=== PATIENT | male | born 1980 | race Caucasian/White ===

== ENCOUNTER → 2018-02-15 15:15 | Outpatient (REF) | payer BC, SELFPAY ==
[2018-02-15 18:48] LABS: Basophils # 0.1 K/mm3 (0-0.2); Basophils % 0.7 % (0.1-2.0); Eosinophils # 0.2 K/mm3 (0.0-0.4); Eosinophils % 2.8 % (0.1-12.0); Hematocrit 42.6 % (42.0-52.0); Lymphocytes # 1.8 K/mm3 (0.7-4.5); Mean Corpuscular HGB Conc 35.2 g/dL (31.8-35.4); Mean Corpuscular Hemoglobin 32.2 pg (27.0-31.2); Mean Corpuscular Volume 91.5 fl (80-94); Mean Platelet Volume 8.4 fl (7.4-10.4); Monocytes # 0.4 K/mm3 (0.1-1.0); Monocytes % 5.7 % (1.7-9.3); Neutrophils # 4.4 K/mm3 (1.8-7.8); Neutrophils % 64.8 % (37.0-80.0); Platelet Count 239 K/mm3 (142-424); Red Blood Count 4.66 M/mm3 (4.60-6.20); Red Cell Distribution Width 12.4 % (11.5-17.5); White Blood Count 6.9 K/mm3 (4.8-10.8)
[2018-02-15 19:15] LABS: Alanine Aminotransferase 30 U/L (12-78); Albumin Level 3.9 gm/dL (3.4-5.0); Albumin/Globulin Ratio 1.1 (1.1-1.8); Alkaline Phosphatase 111 U/L (46-116); Anion Gap 12.1 mEq/L (5-15); Aspartate Amino Transferase 23 U/L (15-37); Bilirubin,Total 0.6 mg/dL (0.2-1.0); Blood Urea Nitrogen 18 mg/dL (7-18); Calcium 9.5 mg/dL (8.5-10.1); Carbon Dioxide 29 mmol/L (21.0-32.0); Chloride 107 mmol/L (98-107); Chol/HDL Ratio 5.8 (1-3.5); Cholesterol 207 mg/dL (140-200); Creatinine,Serum 1.19 mg/dL (0.70-1.30); Estimated Glomerular Filt Rate 69 ml/min (>60); Free Thyroxine Index 3.2 ug/dL (5.93-13.13); GFR (African American) 83 ML/MIN (>60); Globulin 3.6 gm/dl (1.3-3.2); Glucose 89 mg/dL (74-106); HDL Cholesterol 36 mg/dL (27-67); LDL Cholesterol 127 mg/dL (0-130); Potassium 4.1 mmoL/L (3.5-5.1); Sodium 144 mmol/L (136-145); T4 (Thyroxine) 9.5 ug/dl (4.7-13.3); Thyroid Stimulating Hormone 2.54 uIU/ml (0.358-3.740); Total Protein,Serum 7.5 gm/dL (6.4-8.2); Triglycerides 221 mg/dL (30-200); Triiodothryronine (T3) Uptake 34 % (31-39); VLDL Cholesterol 44 mg/dL (0-40)
[2018-02-17 13:48] LABS: Vitamin D 25 Hydroxy 34.9 ng/mL (30.0-100.0)
== END ==
LOC: LAB 15:15
PROVIDERS: Visit Provider Physician Assistant
DX: R53.83 Other fatigue (principal)
CPT/HCPCS: 80053; 80061; 82652; 84436; 84443; 84479; 85025

== ENCOUNTER 2019-01-08 01:39 | Inpatient (IN) ==
[2019-01-08 02:33] LABS: Basophils % 0.3 % (0.1-2.0); Eosinophils # 0.4 K/mm3 (0.0-0.4); Eosinophils % 3.1 % (0.1-12.0); Hematocrit 42.8 % (42.0-52.0); Hemoglobin 14.7 g/dL (14.1-18.0); Lymphocytes # 2.3 K/mm3 (0.7-4.5); Lymphocytes % 20.6 % (10-50); Mean Corpuscular HGB Conc 34.2 g/dL (31.8-35.4); Mean Corpuscular Hemoglobin 31.2 pg (27.0-31.2); Mean Corpuscular Volume 91.1 fl (80-94); Mean Platelet Volume 7.6 fl (7.4-10.4); Monocytes # 0.8 K/mm3 (0.1-1.0); Monocytes % 6.8 % (1.7-9.3); Neutrophils # 7.8 K/mm3 (1.8-7.8); Neutrophils % 69.1 % (37.0-80.0); Platelet Count 243 K/mm3 (142-424); Red Cell Distribution Width 12.5 % (11.5-17.5); White Blood Count 11.2 K/mm3 (4.8-10.8)
[2019-01-08 02:46] LABS: Albumin Level 3.8 gm/dL (3.4-5.0); Albumin/Globulin Ratio 0.9 (1.1-1.8); Bilirubin,Total 0.3 mg/dL (0.2-1.0); Calcium 9.2 mg/dL (8.5-10.1); Globulin 4.2 gm/dl (1.3-3.2)
--- NOTE | 2019-01-08 03:15 | Emergency Department Note ---
ED Disposition Clinical Impression: Tobacco use, Hypothyroidism (acquired) Pancreatitis Qualifiers: Chronicity: acute Pancreatitis type: unspecified pancreatitis type Acute pancreatitis complication: no infection or necrosis Qualified Code(s): K85.90 - Acute pancreatitis without necrosis or infection, unspecified GERD (gastroesophageal reflux disease) Qualifiers: Esophagitis presence: esophagitis presence not specified Qualified Code(s): K21.9 - Gastro-esophageal reflux disease without esophagitis Disposition: Admitted As Inpatient Condition on Discharge: Good Instructions: DI for Acute Abdomen Referrals: Provider,Referral, [Primary Care Provider] - - Critical Care Critical Care Time: No Attestation: On 01/08/19, the high probability of a clinically significant, sudden or life threatening deterioration of the following system(s) required my full and direct attention, intervention and personal management. The time I documented below is in addition to time spent performing reported procedures but includes the following listed in this critical care notation. Medical Decision Making - Medical Records Medical records reviewed: Yes: I reviewed the patient's medical records. - Keith Inquiry Pt receiving controlled substance: No Vital Signs: 01/08/19 01:40 Temperature 98.4 F Temperature Source Oral Pulse Rate [Right Brachial] 79 Respiratory Rate 15 Blood Pressure [Right Arm] 141/80 H Blood Pressure Mean [Right Arm] 100 02 Sat by Pulse Oximetry 99 Oxygen Delivery Method Room Air - Lab Data Lab results reviewed: Yes: I reviewed the patient's lab results. Lab Results 01/08/19 02:25: WBC 11.2 H, RBC 4.70, Hgb 14.7, Hct 42.8, MCV 91.1, MCH 31.2, MCHC 34.2, RDW 12.5, Plt Count 243, MPV 7.6, Neut % (Auto) 69.1, Lymph % (Auto) 20.6, [place] % (Auto) 6.8, Eos % (Auto) 3.1, Baso % (Auto) 0.3, Neut # (Auto) 7.8, Lymph # (Auto) 2.3, [place] # (Auto) 0.8, Eos # (Auto) 0.4, Baso # (Auto) 0.0 01/08/19 02:25: Sodium 139, Potassium 4.0, Chloride 103, Carbon Dioxide 25, Anion Gap 15.0, BUN 22 H, Creatinine 0.98, Estimated Creat Clear 111, Estimated GFR 86, Est GFR ( Amer) 104, Glucose 121 H, Calcium 9.2, Total Bilirubin 0.3, AST 17, ALT 22, Alkaline Phosphatase 113, Total Protein 8.0, Albumin 3.8, Globulin 4.2 H, Albumin/Globulin Ratio 0.9 L, Amylase 183 H, Lipase 4932 H Result diagrams: 01/08/19 02:25 01/08/19 02:25 Orders (Tests/Meds): ED MEDICATIONS Generic Name Dose Route Start Last Admin Trade Name Freq PRN Reason Stop Dose Admin Sodium Chloride 1,000 mls @ 999 mls/hr 01/08/19 02:00 01/08/19 02:13 Sod Chlor 0.9% 1000ml Bag IV 01/08/19 03:00 999 mls/hr .Q1H1M ROXANN Administration Sodium Chloride 10 ml 01/08/19 01:55 Saline Flush 10ml Syringe IV 02/07/19 01:54 NEEDED PRN Maintain IV Site Discontinued Medications Generic Name Dose Route Start Last Admin Trade Name Freq PRN Reason Stop Dose Admin Famotidine 20 mg 01/08/19 01:55 01/08/19 02:03 Pepcid 20mg/2ml Vial IV 01/08/19 01:56 20 mg ONCE ONE Administration Hydromorphone HCl 1 mg 01/08/19 03:08 Dilaudid 2mg/Ml Syringe IV 01/08/19 03:09 ONCE ONE Ketorolac Tromethamine 30 mg 01/08/19 01:55 01/08/19 02:03 Toradol 30mg/Ml Vial IV 01/08/19 01:56 30 mg ONCE ONE Administration Metoclopramide HCl 10 mg 01/08/19 01:55 01/08/19 02:03 Reglan 10mg/2ml Vial IVP 01/08/19 01:56 10 mg ONCE ONE Administration Ondansetron HCl 4 mg 01/08/19 01:55 01/08/19 02:03 Zofran 4mg/2ml Vial IV 01/08/19 01:56 4 mg ONCE ONE Administration Promethazine HCl 12.5 mg 01/08/19 03:08 Phenergan 25mg/Ml 1ml Vial IV 01/08/19 03:09 ONCE ONE Sodium Chloride 25 ml 01/08/19 03:08 Sod Chlor 0.9% 25ml Bag IV 01/08/19 03:09 ONCE ONE ORDERS Category Date Time Status CT abdomen pelvis wo con Stat Cat Scan 01/08/19 01:55 Taken - CT Data CT Scan: Abdomen, Pelvis Time Received: 03:[address] Reviewed: Yes: I have viewed the radiologist's interpretation Preliminary Findings: Abnormal (pancreatitis ) Nausea/Vomiting/Diarrhea HPI - General Chief complaint: Abdominal Pain Stated complaint: Abdominal pain Time Seen by Provider: 01/08/19 02:00 Mode of Arrival: Ambulatory Source of Information: Patient, Parent(s), Medical Record Limitations: No Limitations Description of Symptoms (Recalled from ER Triage Doc. by RN): Pt here with mid gastric abd pain that started Tuesday night and has progressively gotten worse over the weekend. States the pain got extremely bad this evening after eating a greasy dinner. - History of Present Illness HPI Narrative: upper abd pain with nausea w/o melena - has hx of gerd -etoh MD complaint: nausea, vomiting, abdominal pain Onset (ago): day(s) Associated Abdominal Pain: Yes Location of pain: epigastric Severity: moderate Associated symptoms: denies other symptoms - Related Data Home Medications Medication Instructions Recorded Confirmed Levothyroxine Sodium [Tirosint] 100 mcg PO DAILY 01/08/19 01/08/19 Pantoprazole Sodium [Protonix 40mg 40 mg PO DAILY 01/08/19 01/08/19 tablet] Allergies Allergy/AdvReac Type Severity Reaction Status Date / Time No Known Allergies Allergy Verified 02/15/18 14:36 [facility] History - Hepatitis A Screen Drug use history?: No High risk sexual behaviors?: No History of sexually transmitted infection?: No Currently employed?: No Childcare worker?: No Do you have indoor plumbing?: Yes Do you have electricity?: Yes Attestation statement:: This patient has been screened for Hepatitis A risk factors. I have reviewed the patient's past medical history: Yes Medical History: Reports:: Gastroesophageal Reflux Disease(GERD) Denies:: Cancer, Diabetes Mellitus Type 1, Diabetes Mellitus Type 2, MRSA Other Surgeries: Yes: Other Amputation: No Fractures: No Comment: BILATERAL KNEE, STOMACH SURGERY TO HELP WITH GERD - Social History Smoking Status: Current every day smoker Tobacco Type: cigarettes # Packs/Day (cigarettes): 1 Alcohol Intake: never Alcohol Intake Frequency:: a few times a month Substance Use Type: denies use Occupational Status: employed Housing: house Household Members: family - Psychiatric History Expresses thoughts of harming self/others: None Suicide Plan Description: No Plan Family Hx:: No significant family history ROS Obtained: Yes All systems reviewed & no additional complaints - Constitutional Constitutional: Denies fever(s) - Eyes Eyes: Reports system reviewed and no additional complaints, except as docu, Denies change in vision - ENT Ears, Nose, Mouth, and Throat: Denies sore throat - Cardiovascular Cardiovascular: Denies chest pain - Respiratory Respiratory: No cough - Gastrointestinal Gastrointestingal: Reports: abdominal pain, nausea, vomiting. Denies: black, tarry stools - Genitourinary Male Genitourinary: Denies hematuria - Musculoskeletal Musculoskeletal: Denies joint pain, Denies neck pain - Integumentary/Breasts Skin/Breast: Denies rash - Neurologic Neurologic: Denies seizure-like activity Physical Exam - General General appearance: alert - Head Head exam: normocephalic - Eye Eye exam: Present: PERRL, EOMI. Absent: scleral icterus - ENT ENT exam: Present: mucous membranes dry - Neck Neck exam: Present: trachea midline - Respiratory Respiratory exam: Absent: respiratory distress - Cardiovascular Cardiovascular exam: Present: regular rate. Absent: systolic murmur - Abdominal Exam Abdominal exam: Present: soft, tenderness Abdominal tenderness: Present: epigastrium, moderate - Extremities Exam Extremities exam: Present: full ROM - Neurological Exam Neurological exam: Present: alert, CN II-XII intact - Psychiatric Psychiatric exam: Present: normal affect - Skin Skin exam: Absent: rash
[2019-01-08 07:05] LABS: Basophils # 0.1 K/mm3 (0-0.2); Basophils % 0.5 % (0.1-2.0); Eosinophils # 0.3 K/mm3 (0.0-0.4); Hematocrit 38.3 % (42.0-52.0); Lymphocytes # 2.1 K/mm3 (0.7-4.5); Lymphocytes % 23.4 % (10-50); Mean Corpuscular HGB Conc 33.9 g/dL (31.8-35.4); Mean Corpuscular Hemoglobin 31.5 pg (27.0-31.2); Mean Corpuscular Volume 92.8 fl (80-94); Mean Platelet Volume 8.1 fl (7.4-10.4); Monocytes # 0.6 K/mm3 (0.1-1.0); Monocytes % 6.3 % (1.7-9.3); Neutrophils # 6.1 K/mm3 (1.8-7.8); Neutrophils % 66.7 % (37.0-80.0); Platelet Count 204 K/mm3 (142-424); Red Blood Count 4.13 M/mm3 (4.60-6.20); Red Cell Distribution Width 12.6 % (11.5-17.5); White Blood Count 9.1 K/mm3 (4.8-10.8)
[2019-01-08 07:14] LABS: Anion Gap 10.5 mEq/L (5-15); Calcium 8.6 mg/dL (8.5-10.1); Chol/HDL Ratio 5.1 (1-3.5); Potassium 4.5 mmoL/L (3.5-5.1)
[2019-01-08 07:23] LABS: Hemoglobin 12.9 g/dL (14.1-18.0)
--- NOTE | 2019-01-08 07:45 | Pharmacy Consult Notes ---
[facility] Pharmacy VTE Monitoring - Patient Demographics Admission date: 01/08/19 Report Date: 01/08/19 Time: 07:45 Allergies/Adverse Reactions: Patient Allergies No Known Allergies Allergy (Verified 02/15/18 14:36) Height: 1.73 m Weight: 79.01 kg Patient Problems: Current Active Problems Pancreatitis (Acute) Tobacco use (Acute) GERD (gastroesophageal reflux disease) (Chronic) Hypothyroidism (acquired) (Chronic) - VTE Risk Labs: VTE Related Lab Results Hgb 12.9 g/dL (14.1-18.0) L D 01/08/19 06:31 Hct 38.3 % (42.0-52.0) L 01/08/19 06:31 Plt Count 204 K/mm3 (142-424) 01/08/19 06:31 BUN 20 mg/dL (7-18) H 01/08/19 06:31 Creatinine 0.90 mg/dL (0.70-1.30) 01/08/19 06:31 Estimated Creat Clear 124 mL/min (50-200) 01/08/19 06:31 Was VTE Risk Assessment Performed: Yes VTE Risk Level: Very Low Risk - Prophylaxis VTE Prophylaxis Ordered?: Yes Types of VTE Prophylaxis: TEDS Knee High Location of Applied Device: Bilateral Lower Extremeties - VTE Diagnosis Confirmed Treatment or plan recommended: Continue Current Treatment
[2019-01-08 08:27] LABS: Ethyl Alcohol 0 mg/dL (0-99); Lactate Dehydrogenase 98 U/L (82-234)
--- NOTE | 2019-01-08 08:37 | Consult Report ---
*Admission Date: 01/08/19 *Chief complaint: Abdominal pain *History of present illness: Patient is a 38-year-old white male. He has a history of reflux disease. He presented to the emergency department early this morning just before 2 AM with a greater than 2-day history of progressive epigastric pain. He states that this began in the evening of Tuesday as vague intermittent pain. Throughout the weekend he had some progression and it became more severe after eating dinner yesterday evening. 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 Workup revealed chemical evidence of pancreatitis with elevated pancreatic enzymes with normal liver function tests. CT scan r evealed radiographic evidence of pancreatitis. There were no gallstones noted on CT scan. Patient has no known prior history of pancreatitis according to him. In regards to alcohol intake he states that he drinks "8-12 drinks per week". He was admitted and surgical consultation was obtained. Review of Systems - Review of Systems Review of systems:: pertinent systems reviewed and negative unless documented below - Constitutional Reports anorexia - Eyes Denies change in vision - ENT Denies abnormal hearing - *Cardiovascular Denies chest pain - *Respiratory Denies shortness of breath - *Gastrointestinal Reports abdominal pain - *Genitourinary Denies difficulty urinating - *Neurologic Denies seizure-like activity [facility] History Medical History: Reports:: Gastroesophageal Reflux Disease(GERD) Denies:: Cancer, Diabetes Mellitus Type 1, Diabetes Mellitus Type 2, MRSA *Have you ever received a pneumonia vaccine?: No *Have you received a flu vaccine this season?: No Other Medical History: Reports: Hypothyroidism Laterality Cases: Bilateral: Arthroscopy Knee Other Surgeries: Yes: Colonoscopy, EGD, Hernia Repair, Other Amputation: No Fractures: No - *Social History Educational Level: Completed College Smoking Status: Current some day smoker Tobacco Type: cigarettes # Packs/Day (cigarettes): 0 Alcohol Intake: current Alcohol Intake Frequency:: a few times a week Substance Use Type: denies use *Occupational Status:: employed Housing: house Household Members: family *Travel in the last 8 weeks: None - Psychiatric History Expresses thoughts of harming self/others: None Suicide Plan Description: No Plan Family Hx:: No significant family history Meds Home Medications Medication Instructions Recorded Confirmed Type Levothyroxine Sodium [Tirosint] 100 mcg PO DAILY 01/08/19 01/08/19 History Pantoprazole Sodium [Protonix 40mg 40 mg PO DAILY 01/08/19 01/08/19 History tablet] Allergies Allergy/AdvReac Type Severity Reaction Status Date / Time No Known Allergies Allergy Verified 02/15/18 14:36 Exam Vital signs and Labs for Last 24 Hours: Temp Pulse Resp BP Pulse Ox 97.1 F L 73 17 97/64 L 95 01/08/19 03:49 01/08/19 03:49 01/08/19 03:49 01/08/19 03:49 01/08/19 03:49 Laboratory Results - last 24 hr 01/08/19 02:25: WBC 11.2 H, RBC 4.70, Hgb 14.7, Hct 42.8, MCV 91.1, MCH 31.2, MCHC 34.2, RDW 12.5, Plt Count 243, MPV 7.6, Neut % (Auto) 69.1, Lymph % (Auto) 20.6, [place] % (Auto) 6.8, Eos % (Auto) 3.1, Baso % (Auto) 0.3, Neut # (Auto) 7.8, Lymph # (Auto) 2.3, [place] # (Auto) 0.8, Eos # (Auto) 0.4, Baso # (Auto) 0.0 01/08/19 02:25: Sodium 139, Potassium 4.0, Chloride 103, Carbon Dioxide 25, Anion Gap 15.0, BUN 22 H, Creatinine 0.98, Estimated Creat Clear 111, Estimated GFR 86, Est GFR ( Amer) 104, Glucose 121 H, Calcium 9.2, Total Bilirubin 0.3, AST 17, ALT 22, Alkaline Phosphatase 113, Total Protein 8.0, Albumin 3.8, Globulin 4.2 H, Albumin/Globulin Ratio 0.9 L, Amylase 183 H, Lipase 4932 H 01/08/19 06:31: WBC 9.1, RBC 4.13 L, Hgb 12.9 L D, Hct 38.3 L, MCV 92.8, MCH 31.5 H, MCHC 33.9, RDW 12.6, Plt Count 204, MPV 8.1, Neut % (Auto) 66.7, Lymph % (Auto) 23.4, [place] % (Auto) 6.3, Eos % (Auto) 3.0, Baso % (Auto) 0.5, Neut # (Auto) 6.1, Lymph # (Auto) 2.1, [place] # (Auto) 0.6, Eos # (Auto) 0.3, Baso # (Auto) 0.1 01/08/19 06:31: Sodium 142, Potassium 4.5, Chloride 109 H, Carbon Dioxide 27, Anion Gap 10.5, BUN 20 H, Creatinine 0.90, Estimated Creat Clear 124, Estimated GFR 94, Est GFR ( Amer) 114, Glucose 111 H, Calcium 8.6, Magnesium 1.9, Triglycerides 140, Cholesterol 149, LDL Cholesterol 92, VLDL Cholesterol 28, HDL Cholesterol 29, Cholesterol/HDL Ratio 5.1 H 01/08/19 06:31: Lactate Dehydrogenase 98, Plasma/Serum Alcohol 0 I & O for Last 24 hours: Intake & Output 01/05/19 01/06/19 01/07/19 01/08/19 11:59 11:59 11:59 11:59 Intake Total 1300 / 1300 Balance 1300 / 1300 Weight 174 lb 3 oz - *Routine HEENT Exam Head: Present: normocephalic Eye: Present: EOMI, PERRL ENT: Present: mucous membranes moist - *Routine Neck Exam Present: supple. Absent: lymphadenopathy - *Routine Respiratory Exam Present: CTA bilaterally - *Routine Cardiovascular Exam Present: RRR - *Routine Abdominal Exam Present: soft, normoactive bowel sounds, tenderness Comments: He has minimal epigastric tenderness without guarding or rebound. - *Routine Extremities Exam Absent: cyanosis, clubbing, edema - *Routine Skin Exam Present: warm. Absent: rash - *Routine Neurological Exam Present: alert, oriented X3 - Detailed Eye Exam Eyelids: Left normal inspection Results - Labs 01/08/19 06:31 01/08/19 06:31 Laboratory Results - last 24 hr 01/08/19 02:25: WBC 11.2 H, RBC 4.70, Hgb 14.7, Hct 42.8, MCV 91.1, MCH 31.2, MCHC 34.2, RDW 12.5, Plt Count 243, MPV 7.6, Neut % (Auto) 69.1, Lymph % (Auto) 20.6, [place] % (Auto) 6.8, Eos % (Auto) 3.1, Baso % (Auto) 0.3, Neut # (Auto) 7.8, Lymph # (Auto) 2.3, [place] # (Auto) 0.8, Eos # (Auto) 0.4, Baso # (Auto) 0.0 01/08/19 02:25: Sodium 139, Potassium 4.0, Chloride 103, Carbon Dioxide 25, Anion Gap 15.0, BUN 22 H, Creatinine 0.98, Estimated Creat Clear 111, Estimated GFR 86, Est GFR ( Amer) 104, Glucose 121 H, Calcium 9.2, Total Bilirubin 0.3, AST 17, ALT 22, Alkaline Phosphatase 113, Total Protein 8.0, Albumin 3.8, Globulin 4.2 H, Albumin/Globulin Ratio 0.9 L, Amylase 183 H, Lipase 4932 H 01/08/19 06:31: WBC 9.1, RBC 4.13 L, Hgb 12.9 L D, Hct 38.3 L, MCV 92.8, MCH 31.5 H, MCHC 33.9, RDW 12.6, Plt Count 204, MPV 8.1, Neut % (Auto) 66.7, Lymph % (Auto) 23.4, [place] % (Auto) 6.3, Eos % (Auto) 3.0, Baso % (Auto) 0.5, Neut # (Auto) 6.1, Lymph # (Auto) 2.1, [place] # (Auto) 0.6, Eos # (Auto) 0.3, Baso # (Auto) 0.1 01/08/19 06:31: Sodium 142, Potassium 4.5, Chloride 109 H, Carbon Dioxide 27, Anion Gap 10.5, BUN 20 H, Creatinine 0.90, Estimated Creat Clear 124, Estimated GFR 94, Est GFR ( Amer) 114, Glucose 111 H, Calcium 8.6, Magnesium 1.9, Triglycerides 140, Cholesterol 149, LDL Cholesterol 92, VLDL Cholesterol 28, HDL Cholesterol 29, Cholesterol/HDL Ratio 5.1 H 01/08/19 06:31: Lactate Dehydrogenase 98, Plasma/Serum Alcohol 0 Assessment and Plan - Assessment and plan all Dx Assessment and Plan for all problems:: Patient has chemical and radiographic evidence of pancreatitis. Recommend medical management of pancreatitis. Unclear as to the etiology. Thus far, no radiographic evidence or laboratory studies suggestive of biliary pancreatitis. However gallbladder ultrasound would be appropriate endeavor. For now, continue medical management of pancreatitis.
--- NOTE | 2019-01-08 14:48 | Progress Note ---
Subjective Narrative: Patient continues to have some abdominal pain which is partially controlled with narcotic pain medication. Exam Vital signs and Labs for Last 24 Hours: Temp Pulse Resp BP Pulse Ox 98.4 F 70 15 105/66 L 97 01/08/19 08:00 01/08/19 08:00 01/08/19 08:00 01/08/19 08:00 01/08/19 08:00 Laboratory Results - last 24 hr 01/08/19 02:25: WBC 11.2 H, RBC 4.70, Hgb 14.7, Hct 42.8, MCV 91.1, MCH 31.2, MCHC 34.2, RDW 12.5, Plt Count 243, MPV 7.6, Neut % (Auto) 69.1, Lymph % (Auto) 20.6, [place] % (Auto) 6.8, Eos % (Auto) 3.1, Baso % (Auto) 0.3, Neut # (Auto) 7.8, Lymph # (Auto) 2.3, [place] # (Auto) 0.8, Eos # (Auto) 0.4, Baso # (Auto) 0.0 01/08/19 02:25: Sodium 139, Potassium 4.0, Chloride 103, Carbon Dioxide 25, Anion Gap 15.0, BUN 22 H, Creatinine 0.98, Estimated Creat Clear 111, Estimated GFR 86, Est GFR ( Amer) 104, Glucose 121 H, Calcium 9.2, Total Bilirubin 0.3, AST 17, ALT 22, Alkaline Phosphatase 113, Total Protein 8.0, Albumin 3.8, G lobulin 4.2 H, Albumin/Globulin Ratio 0.9 L, Amylase 183 H, Lipase 4932 H 01/08/19 06:31: WBC 9.1, RBC 4.13 L, Hgb 12.9 L D, Hct 38.3 L, MCV 92.8, MCH 31.5 H, MCHC 33.9, RDW 12.6, Plt Count 204, MPV 8.1, Neut % (Auto) 66.7, Lymph % (Auto) 23.4, [place] % (Auto) 6.3, Eos % (Auto) 3.0, Baso % (Auto) 0.5, Neut # (Auto) 6.1, Lymph # (Auto) 2.1, [place] # (Auto) 0.6, Eos # (Auto) 0.3, Baso # (Auto) 0.1 01/08/19 06:31: Sodium 142, Potassium 4.5, Chloride 109 H, Carbon Dioxide 27, Anion Gap 10.5, BUN 20 H, Creatinine 0.90, Estimated Creat Clear 124, Estimated GFR 94, Est GFR ( Amer) 114, Glucose 111 H, Calcium 8.6, Magnesium 1.9, Triglycerides 140, Cholesterol 149, LDL Cholesterol 92, VLDL Cholesterol 28, HDL Cholesterol 29, Cholesterol/HDL Ratio 5.1 H 01/08/19 06:31: Lactate Dehydrogenase 98, Plasma/Serum Alcohol 0 01/08/19 06:31: Lipase 3963 H I & O for Last 24 hours: Intake & Output 01/06/19 01/07/19 01/08/19 01/09/19 11:59 11:59 11:59 11:59 Intake Total 1300 / 1300 Balance 1300 / 1300 Weight 174 lb 3 oz - Constitutional no acute distress - *Routine Abdominal Exam Present: soft. Absent: tenderness Progress Note: A&P Assessment and Plan for All Diagnoses:: Patient has evidence of pancreatitis based on laboratory findings and CT radiographic imaging. Ultrasound reveals no evidence suggestive of biliary etiology (no gallstones, no biliary ductal dilatation). He has septated gallbladder with scant biliary sludge. This appears to be most likely non- biliary pancreatitis. Recommend continue expectant nonoperative medical management for pancreatitis.
--- NOTE | 2019-01-08 17:17 | History & Physical Report ---
*Admission Date: 01/08/19 *Chief complaint: abd pain *History of present illness: this wm with progressive upper abd pain with rad to rt upper abd and back with dec po intake and nausea and episode of vomiting with dec po intake - he was found on ct and labs - elevated lipase to have acute pancreatitis - no prev hx and no known gb dis and some occ etoh use - he was admitted for eval and treatment including pain control - [facility] History I have reviewed the patient's past medical history: Yes Medical History: Reports:: Gastroesophageal Reflux Disease(GERD) Denies:: Cancer, Diabetes Mellitus Type 1, Diabetes Mellitus Type 2, MRSA *Have you ever received a pneumonia vaccine?: No *Have you received a flu vaccine this season?: No Other Medical History: Reports: Hypothyroidism Laterality Cases: Bilateral: Arthroscopy Knee Other Surgeries: Yes: Colonoscopy, EGD, Hernia Repair, Other Amputation: No Fractures: No - *Social History Educational Level: Completed College Smoking Status: Current some day smoker Tobacco Type: cigarettes # Packs/Day (cigarettes): 0 Alcohol Intake: current Alcohol Intake Frequency:: a few times a week Substance Use Type: denies use *Occupational Status:: employed Housing: house Household Members: family *Travel in the last 8 weeks: None - Psychiatric History Expresses thoughts of harming self/others: None Suicide Plan Description: No Plan Family Hx:: No significant family history Review of Systems - Review of Systems Review of systems:: pertinent systems reviewed and negative unless documented below - Constitutional Denies fever(s) - Eyes Denies change in vision - ENT Denies neck pain - *Cardiovascular Denies chest pain at rest, Denies shortness of breath - *Respiratory Reports chest congestion, Denies cough - *Gastrointestinal Reports abdominal pain, Reports nausea, Reports vomiting, Denies vomiting blood, Denies black, tarry stools - *Genitourinary Denies blood in urine - *Musculoskeletal Denies joint pain, Denies joint swelling - Integumentary/Breasts Denies rash - *Neurologic Denies abnormal hearing, Denies dizziness, Denies seizure-like activity - Psychiatric Denies anxiety Meds Home Medications Medication Instructions Recorded Confirmed Type Levothyroxine Sodium [Tirosint] 100 mcg PO DAILY 01/08/19 01/08/19 History Pantoprazole Sodium [Protonix 40mg 40 mg PO DAILY 01/08/19 01/08/19 History tablet] Allergies Allergy/AdvReac Type Severity Reaction Status Date / Time No Known Allergies Allergy Verified 02/15/18 14:36 Exam Vital signs and Labs for Last 24 Hours: Temp Pulse Resp BP Pulse Ox 98.5 F 93 H 17 110/75 98 01/08/19 15:38 01/08/19 15:38 01/08/19 15:38 01/08/19 15:38 01/08/19 15:38 Laboratory Results - last 24 hr 01/08/19 02:25: WBC 11.2 H, RBC 4.70, Hgb 14.7, Hct 42.8, MCV 91.1, MCH 31.2, MCHC 34.2, RDW 12.5, Plt Count 243, MPV 7.6, Neut % (Auto) 69.1, Lymph % (Auto) 20.6, Dixon % (Auto) 6.8, Eos % (Auto) 3.1, Baso % (Auto) 0.3, Neut # (Auto) 7.8, Lymph # (Auto) 2.3, Dixon # (Auto) 0.8, Eos # (Auto) 0.4, Baso # (Auto) 0.0 01/08/19 02:25: Sodium 139, Potassium 4.0, Chloride 103, Carbon Dioxide 25, Anion Gap 15.0, BUN 22 H, Creatinine 0.98, Estimated Creat Clear 111, Estimated GFR 86, Est GFR ( Amer) 104, Glucose 121 H, Calcium 9.2, Total Bilirubin 0.3, AST 17, ALT 22, Alkaline Phosphatase 113, Total Protein 8.0, Albumin 3.8, Globulin 4.2 H, Albumin/Globulin Ratio 0.9 L, Amylase 183 H, Lipase 4932 H 01/08/19 06:31: WBC 9.1, RBC 4.13 L, Hgb 12.9 L D, Hct 38.3 L, MCV 92.8, MCH 31.5 H, MCHC 33.9, RDW 12.6, Plt Count 204, MPV 8.1, Neut % (Auto) 66.7, Lymph % (Auto) 23.4, Dixon % (Auto) 6.3, Eos % (Auto) 3.0, Baso % (Auto) 0.5, Neut # (Auto) 6.1, Lymph # (Auto) 2.1, Dixon # (Auto) 0.6, Eos # (Auto) 0.3, Baso # (Auto) 0.1 01/08/19 06:31: Sodium 142, Potassium 4.5, Chloride 109 H, Carbon Dioxide 27, Anion Gap 10.5, BUN 20 H, Creatinine 0.90, Estimated Creat Clear 124, Estimated GFR 94, Est GFR ( Amer) 114, Glucose 111 H, Calcium 8.6, Magnesium 1.9, Triglycerides 140, Cholesterol 149, LDL Cholesterol 92, VLDL Cholesterol 28, HDL Cholesterol 29, Cholesterol/HDL Ratio 5.1 H 01/08/19 06:31: Lactate Dehydrogenase 98, Plasma/Serum Alcohol 0 01/08/19 06:31: Lipase 3963 H I & O for Last 24 hours: Intake & Output 01/06/19 01/07/19 01/08/19 01/09/19 11:59 11:59 11:59 11:59 Intake Total 1300 / 1300 360 / 360 Balance 1300 / 1300 360 / 360 Weight 174 lb 3 oz - Constitutional no acute distress - *Routine HEENT Exam Head: Present: normocephalic Eye: Present: EOMI, PERRL. Absent: conjunctival icterus ENT: Present: mucous membranes dry - *Routine Neck Exam Absent: JVD - *Routine Respiratory Exam Present: CTA bilaterally - *Routine Cardiovascular Exam Present: RRR. Absent: murmur, gallop, rubs - *Routine Abdominal Exam Present: soft, tenderness. Absent: distended, organomegaly - *Routine Extremities Exam Present: full ROM - *Routine Skin Exam Absent: petechiae - *Routine Neurological Exam Present: alert, oriented X3, CN II-XII intact - Routine Psychiatric Exam Present: normal affect Assessment and Plan (1) Acute pancreatitis Current visit: Yes Status: Acute Qualifiers: Pancreatitis type: unspecified pancreatitis type Acute pancreatitis complication: no infection or necrosis Qualified Code(s): K85.90 - Acute pancreatitis without necrosis or infection, unspecified Category: Medical Code(s): K85.90 - Acute pancreatitis without necrosis or infection, unspecified (2) Tobacco use Current visit: Yes Status: Acute Category: Medical Code(s): Z72.0 - Tobacco use (3) GERD (gastroesophageal reflux disease) Current visit: Yes Status: Chronic Qualifiers: Esophagitis presence: esophagitis presence not specified Qualified Code(s): K21.9 - Gastro-esophageal reflux disease without esophagitis Category: Medical Code(s): K21.9 - Gastro-esophageal reflux disease without esophagitis (4) Hypothyroidism (acquired) Current visit: Yes Status: Chronic Category: Medical Code(s): E03.9 - Hypothyroidism, unspecified
[2019-01-09 07:58] VITALS: BP 114/68
--- NOTE | 2019-01-09 14:51 | Discharge Summary ---
General - General Admission date:: 01/08/19 Discharge date: 01/09/19 HPI HPI: this wm with progressive upper abd pain with rad to rt upper abd and back with dec po intake and nausea and episode of vomiting with dec po intake - he was found on ct and labs - elevated lipase to have acute pancreatitis - no prev hx and no known gb dis and some occ etoh use - he was admitted for eval and treatment including pain control - Hospital Course Hospital Course: lipase continue to trend down, pt states abd not tender today and requesting to eat more. Iv fluids for hydration and pain meds for pain control. will dc home follow up on tuesday for repeat lipase. Discussion with pt about not drinking any ethol. Objective Vital signs: Temp Pulse Resp BP Pulse Ox 99.0 F 86 14 114/68 95 01/09/19 07:57 01/09/19 07:57 01/09/19 07:57 01/09/19 07:57 01/09/19 07:57 no acute distress - *Routine HEENT Exam Head: Present: normocephalic Eye: Present: PERRL ENT: Present: mucous membranes moist - *Routine Respiratory Exam Present: CTA bilaterally - *Routine Cardiovascular Exam Present: RRR - *Routine Abdominal Exam Present: soft, normoactive bowel sounds. Absent: tenderness, distended - *Routine Extremities Exam Present: full ROM - *Routine Skin Exam Present: intact - *Routine Neurological Exam Present: alert, oriented X3 - Routine Psychiatric Exam Present: normal affect Results Labs on day of discharge: Labs from last 24 hours 01/09/19 01/09/19 01/08/19 12:10 07:03 23:00 Lipase 944 H 1186 H 1369 H - Additional Comments rounded with joycelyn all orders per joycelyn DS: Diagnosis - Discharge Diagnosis (1) Acute pancreatitis Status: Acute (2) Tobacco use Status: Acute (3) GERD (gastroesophageal reflux disease) Status: Chronic (4) Hypothyroidism (acquired) Status: Chronic Discharge Plan - Patient Discharge Instructions ACTIVITY: Continue current activity DIET: continue same diet Patient Instructions: DI for Pancreatitis - Follow up Plan Follow up with: Renzo Muro MD [Emergency Provider] - 1 week Disposition: Home, Self-Long-Term Medications: Home Medications Medication Instructions Recorded Confirmed Type Levothyroxine Sodium [Tirosint] 100 mcg PO DAILY 01/08/19 01/08/19 History Pantoprazole Sodium [Protonix 40mg 40 mg PO DAILY 01/08/19 01/08/19 History tablet] Prescriptions/Medication Reconciliation: Continue Levothyroxine Sodium [Tirosint] 100 mcg PO DAILY Pantoprazole Sodium [Protonix 40mg tablet] 40 mg PO DAILY
== END 2019-01-09 15:56 | disposition home or self-care (01) | DRG 440 ==
LOC: ER 01:39 → 2ND 03:15
PROVIDERS: ADMIT Emergency Medicine; ATTEND Emergency Medicine
CPT/HCPCS: J2405

== ENCOUNTER → 2019-01-16 14:36 | Outpatient (CLI) | payer BC, SELFPAY ==
[2019-01-16 15:51] LABS: Amylase 39 U/L (25-115); Lipase 188 u/L (73-393)
== END ==
PROVIDERS: Visit Provider Nurse Practitioner Family
DX: R10.9 Unspecified abdominal pain (principal)
CPT/HCPCS: 82150; 83690

== ENCOUNTER → 2019-02-01 10:17 | Outpatient (CLI) | payer BC, SELFPAY ==
--- NOTE | 2019-02-01 10:18 | NM_ITS ---
NM hepatobiliary w pharm HISTORY: Abdominal pain, pancreatitis, epigastric pain ITS.REASON: sludge ORDERING PHYSICIAN: ANGELI Alvarado PATIENT AGE: 38 years COMPARISON: None DOSE: 8.80 MCI TC Choletec 1.6 mcg of cck Injected into RT ant FINDINGS: Homogeneous activity is present within the hepatic parenchyma. Activity is present in the gallbladder by 20 minutes. Activity is present in the small bowel by 20 minutes. The gallbladder ejection fraction is calculated to be 73% The patient did not report pain or other symptoms during CCK infusion. IMPRESSION: Unremarkable hepatobiliary scan and gallbladder ejection fraction. No evidence of common or cystic duct obstruction with normal gallbladder ejection fraction
== END ==
PROVIDERS: PCP Physician Assistant; Visit Provider Physician Assistant
DX: K82.8 Other specified diseases of gallbladder (principal); R10.11 Right upper quadrant pain; R10.9 Unspecified abdominal pain
CPT/HCPCS: 78227; A9537; J2805

== ENCOUNTER → 2019-05-11 14:24 | Outpatient (CLI) | payer BC, SELFPAY ==
[2019-05-11 15:16] LABS: Basophils % 0.5 % (0.1-2.0); Eosinophils # 0.2 K/mm3 (0.0-0.4); Eosinophils % 2.9 % (0.1-12.0); Hematocrit 44.3 % (42.0-52.0); Hemoglobin 14.8 g/dL (14.1-18.0); Lymphocytes # 2.2 K/mm3 (0.7-4.5); Mean Corpuscular HGB Conc 33.4 g/dL (31.8-35.4); Mean Corpuscular Hemoglobin 30.1 pg (27.0-31.2); Mean Corpuscular Volume 90.1 fl (80-94); Mean Platelet Volume 7.8 fl (7.4-10.4); Monocytes # 0.4 K/mm3 (0.1-1.0); Monocytes % 6.2 % (1.7-9.3); Neutrophils # 4.2 K/mm3 (1.8-7.8); Neutrophils % 59.4 % (37.0-80.0); Platelet Count 255 K/mm3 (142-424); Red Blood Count 4.92 M/mm3 (4.60-6.20); Red Cell Distribution Width 13.1 % (11.5-17.5); White Blood Count 7.1 K/mm3 (4.8-10.8)
[2019-05-11 16:55] LABS: Alanine Aminotransferase 40 U/L (12-78); Albumin Level 3.7 gm/dL (3.4-5.0); Alkaline Phosphatase 113 U/L (46-116); Anion Gap 14.1 mEq/L (5-15); Aspartate Amino Transferase 18 U/L (15-37); Bilirubin,Total 0.4 mg/dL (0.2-1.0); Blood Urea Nitrogen 16 mg/dL (7-18); Calcium 9.2 mg/dL (8.5-10.1); Carbon Dioxide 26 mmol/L (21.0-32.0); Chloride 104 mmol/L (98-107); Chol/HDL Ratio 6.7 (1-3.5); Cholesterol 207 mg/dL (140-200); Creatinine,Serum 0.87 mg/dL (0.70-1.30); Estimated Glomerular Filt Rate 98 ml/min (>60); Free T4 (Free Thyroxine) 1.24 ng/dl (0.76-1.46); GFR (African American) 119 ML/MIN (>60); Globulin 3.6 gm/dl (1.3-3.2); Glucose 98 mg/dL (74-106); HDL Cholesterol 31 mg/dL (27-67); LDL Cholesterol 120 mg/dL (0-130); Potassium 4.1 mmoL/L (3.5-5.1); Sodium 140 mmol/L (136-145); Thyroid Stimulating Hormone 0.85 uIU/ml (0.358-3.740); Total Protein,Serum 7.3 gm/dL (6.4-8.2); Triglycerides 280 mg/dL (30-200); VLDL Cholesterol 56 mg/dL (0-40)
== END ==
PROVIDERS: Visit Provider Emergency Medicine
DX: E03.9 Hypothyroidism, unspecified (principal); Z13.0 Encounter for screening for diseases of the blood and blood-forming organs and certain disorders involving the immune mechanism; Z13.220 Encounter for screening for lipoid disorders
CPT/HCPCS: 36415; 80053; 80061; 84439; 84443; 85025

== ENCOUNTER 2020-07-31 13:43 | Emergency (ER) | payer BC, SELFPAY ==
[2020-07-31 13:51] VITALS: BP 141/80; PULSE 101; RESP 18; TEMP 36.7; O2SAT 98; BMI 28.2
--- NOTE | 2020-07-31 14:20 | HMH.EDUTC ---
[facility] [place] Disposition Clinical Impression: Encounter for laboratory testing for COVID-19 virus Disposition: Home, Self-Care Condition on Discharge: Good Instructions: Preventing the Spread of Coronavirus Discharge Instructions Additional Instructions: *Monitor Temp, Over the counter Motrin or Tylenol as directed/as needed Tylenol every 4 hours and Motrin every 6 hours (as long as your family doctor has told you that you can take it) for fever or pain. and straight to ER if unable to lower temp less than 101.0 after medication given *Warm salt water gargles may help to soothe the throat *Throat Lozenges *Warm fluids like tea with honey may help to soothe the throat *Sleep elevated *Humidifier/Vaporizer *Flonase 1-2 sprays in each nostril daily but be aware that it may take 2-3 days before you notice improvement Follow up IMMEDIATELY for new or worsening symptoms or no Noticeable improvement over the next 48-72 hours. 911 for difficulty breathing or swallowing You was tested for today for COVID19 your test result should be back later this evening, you may call back later this evening to see if your test results are back and the result You was given a handout with instructions for Self Quarantine and Self isolation for while you wait on test results and what to do if they are positive Referrals: Renzo Muro MD [Primary Care Provider] - As needed Forms: Work/School Release Time of Disposition: 14:25 Medical Decision Making - Keith Inquiry Pt receiving controlled substance: No Keith was queried for this patient: No Vital Signs: 07/31/20 13:51 Temperature 98.1 F Temperature Source Oral Pulse Rate [Radial] 101 H Respiratory Rate 18 Blood Pressure [Right Arm] 141/80 H Blood Pressure Mean [Right Arm] 100 Blood Pressure Source [Right Arm] Automatic Cuff Blood Pressure Position [Right Arm] Sitting 02 Sat by Pulse Oximetry 98 Oxygen Delivery Method Room Air [facility] [place] HPI - General Stated complaint: possible covid exposure Time Seen by Provider: 07/31/20 14:20 Mode of Arrival: Ambulatory Source of Information: Patient Limitations: No Limitations Description of Symptoms (Recalled from Triage Doc. by RN): POSSIBLE COVID EXPOSURE. WAS TESTED BY THE HEALTH DEPARTMENT BUT STATES HIS RESULTS WILL NOT BE BACK UNTIL TUESDAY SO HE CAME HERE FOR A QUICKER TEST. HEENT Symptoms (Recalled from RN notes): No Resp Symptoms (Recalled from RN notes): No Skin Symptoms (Recalled from RN notes): No MS Symptoms (Recalled from RN notes): No Functional Status (Recalled from RN notes): WNL - History of Present Illness Provider Complaint: Patient states that he was around a friend that was around his sister that recently tested positive for COVID States that he was tested for COVID earlier today but was told his result wouldnt be back until Tuesday and they told him if he wanted faster he needed to come here so he did Denies symptoms - Related Data Home Medications Medication Instructions Recorded Confirmed Pantoprazole Sodium [Protonix 40mg 40 mg PO DAILY 01/08/19 05/29/20 tablet] Previous Rx's Medication Instructions Recorded levothyroxine 100 mcg tablet See Rx Instructions .ROUTE 04/09/20 .COMPLEX #90 tablet azithromycin 250 mg tablet 250 mg PO QDAY 5 Days #6 tab 05/29/20 Allergies Allergy/AdvReac Type Severity Reaction Status Date / Time No Known Allergies Allergy Verified 05/29/20 11:08 - Worker's Comp Is this a Worker's Comp case?: No [facility] History - Hepatitis A Screen Drug use history?: No High risk sexual behaviors?: No History of sexually transmitted infection?: No Currently employed?: No Childcare worker?: No Do you have indoor plumbing?: Yes Do you have electricity?: Yes Attestation statement:: This patient has been screened for Hepatitis A risk factors. I have reviewed the patient's past medical history: Yes Medical History: Reports:: Gastroesophageal Reflux Disease(GERD) Denies:: Christiane
[2020-07-31 14:39] VITALS: BP 141/80; PULSE 101; RESP 18; TEMP 36.7; O2SAT 98
== END 2020-07-31 14:40 | disposition home or self-care (01) ==
PROVIDERS: Emergency Provider Nurse Practitioner; PCP Emergency Medicine
DX: Z20.828 Contact with and (suspected) exposure to other viral communicable diseases (principal); K21.9 Gastro-esophageal reflux disease without esophagitis; E03.9 Hypothyroidism, unspecified; F17.210 Nicotine dependence, cigarettes, uncomplicated
CPT/HCPCS: 99201; U0003

== ENCOUNTER → 2022-08-23 08:45 | Outpatient (CLI) | payer BC, SELFPAY ==
[2022-08-23 13:27] LABS: Basophils # 0.1 K/mm3 (0-0.2); Eosinophils # 0.2 K/mm3 (0.0-0.4); Eosinophils % 2.5 % (0.1-12.0); Hematocrit 44.3 % (42.0-52.0); Hemoglobin 14.6 g/dL (14.1-18.0); Lymphocytes # 2.1 K/mm3 (0.7-4.5); Mean Corpuscular HGB Conc 32.9 g/dL (31.8-35.4); Mean Corpuscular Hemoglobin 30.5 pg (27.0-31.2); Mean Corpuscular Volume 92.7 fl (80-94); Mean Platelet Volume 8.8 fl (7.4-10.4); Monocytes # 0.3 K/mm3 (0.1-1.0); Monocytes % 5.2 % (1.7-9.3); Neutrophils # 3.6 K/mm3 (1.8-7.8); Neutrophils % 58.2 % (37.0-80.0); Platelet Count 286 K/mm3 (142-424); Red Blood Count 4.78 M/mm3 (4.60-6.20); Red Cell Distribution Width 12.5 % (11.5-17.5); White Blood Count 6.2 K/mm3 (4.8-10.8)
[2022-08-23 13:47] LABS: Alanine Aminotransferase 25 U/L (12-78); Albumin Level 4.5 g/dl (3.5-5.0); Albumin/Globulin Ratio 1.5 (1.1-1.8); Alkaline Phosphatase 108 U/L (38-126); Anion Gap 16.1 mEq/L (5-15); Aspartate Amino Transferase 29 U/L (17-59); Bilirubin,Total 0.8 mg/dl (0.2-1.3); Blood Urea Nitrogen 17 mg/dl (9-20); Calcium 10.2 mg/dl (8.4-10.2); Carbon Dioxide 25 mmol/L (22.0-30.0); Chloride 101 mmol/L (98-107); Chol/HDL Ratio 6.1 (1-3.5); Cholesterol 239 mg/dl (140-200); Estimated Glomerular Filt Rate 106 ml/min (>60); GFR (African American) 128 ML/MIN (>60); Glucose 119 mg/dl (74-100); HDL Cholesterol 39 mg/dl (40-60); Potassium 4.1 mmoL/L (3.5-5.1); Sodium 138 mmol/L (136-145); Total Protein,Serum 7.5 g/dl (6.3-8.2); Triglycerides 185 mg/dl (30-150); VLDL Cholesterol 37 mg/dL (0-40)
[2022-08-23 13:58] LABS: Direct LDL Cholesterol 142.62 mg/dL (100-129)
[2022-08-23 14:18] LABS: Thyroid Stimulating Hormone 1.63 uIU/mL (0.465-4.68)
== END ==
PROVIDERS: PCP Student in an Organized Health Care Education/Training Program; Visit Provider Student in an Organized Health Care Education/Training Program
DX: E03.9 Hypothyroidism, unspecified (principal); R53.83 Other fatigue; E55.9 Vitamin D deficiency, unspecified
CPT/HCPCS: 80053; 80061; 82306; 84443; 85025

== ENCOUNTER → 2022-09-08 14:45 | Outpatient (CLI) | payer BC, SELFPAY ==
[2022-09-08 17:51] LABS: Adenovirus,PCR Not Detected (NotDetected); Bordetella Pertussis Not Detected (NotDetected); Chlamydophila Pneumoniae, PCR Not Detected (NotDetected); Coronavirus 19, PCR Not Detected (NotDetected); Coronavirus 229E Not Detected (NotDetected); Coronavirus NL63 Not Detected (NotDetected); Coronavirus OC43 Not Detected (NotDetected); Coronovirus HKU1,PCR Not Detected (NotDetected); Human Metapneumovirus Not Detected (NotDetected); Influenza A, PCR Not Detected (NotDetected); Influenza AH1, PCR Not Detected (NotDetected); Influenza AH3,PCR Not Detected (NotDetected); Influenza B, PCR Not Detected (NotDetected); Mycoplasma Pneumoniae, PCR Not Detected (NotDetected); Parainfluenza 1, PCR Not Detected (NotDetected); Parainfluenza 2, PCR Not Detected (NotDetected); Parainfluenza 3, PCR Not Detected (NotDetected); Parainfluenza 4, PCR Not Detected (NotDetected); Respiratory Syncytial Virus Not Detected (NotDetected); Rhinovirus/Enterovirus Not Detected (NotDetected)
[2022-09-10 08:36] LABS: Influenza AH1, 2009 Detected (NotDetected)
== END ==
PROVIDERS: PCP Nurse Practitioner Family; Visit Provider Nurse Practitioner Family
DX: J09.X2 Influenza due to identified novel influenza A virus with other respiratory manifestations (principal); R51.9 Headache, unspecified; R50.9 Fever, unspecified; R53.83 Other fatigue; R11.0 Nausea
CPT/HCPCS: 87581; 87632; 87798; C9803; U0003; U0005

== ENCOUNTER → 2022-10-18 11:37 | Outpatient (CLI) | payer BC, SELFPAY ==
--- NOTE | 2022-10-18 11:40 | XR_ITS ---
FINAL REPORT CLINICAL HISTORY: elbow pain FINDINGS: RIGHT ELBOW 3 views were obtained. There is no acute fracture or dislocation. There is no joint effusion. The joint spaces are intact. There is no soft tissue abnormality. IMPRESSION: No acute process. Reviewed, Interpreted and Dictated by Cleveland Salas III, MD Transcribed by Darryn Nolen Authenticated and [facility]
== END ==
PROVIDERS: PCP Student in an Organized Health Care Education/Training Program; Visit Provider Student in an Organized Health Care Education/Training Program
DX: M25.521 Pain in right elbow (principal)
CPT/HCPCS: 73080

== ENCOUNTER 2022-12-16 09:00 | Outpatient (RCR) | payer BC, SELFPAY ==
--- NOTE | 2022-11-03 18:05 | HMH.PTOPEV ---
PT Outpatient Evaluation Rehab PT Outpatient Evaluation Start: 11/03/22 16:40 Freq: Status: Active Protocol: Document 11/03/22 16:41 NATHALYSHARATH (Rec: 11/03/22 18:05 HEIDI [id number]) E-signed By Maira Garrido, PT Outpatient Therapy Subjective History Subjective History Pt is 42 y/o male that reports onset of right lateral elbow pain 2 months ago. Pt reports he thinks onset of pain occurred due to repetitive cleaning with a long squeegee with elbow extended. Pt denies initial pain but reports onset of pain the next day that has since persisted without change in severity. Pt reports he was prescribed Meloxicam which helps with intensity of pain at times. Pt reports he has a constant dull pain that often radiates right above & below the elbow. Pt also states he will get brief sharp pain when he is lifting with his elbow extended. Pt denies neck, shoulder, wrist or hand pain and denies paresthesia. Pt had an elbow xray on 10/18 without acute findings and states he has an appointment with an orthopedic doctor tomorrow. No other comorbidities to report per pt. Chief Complaint Pain Symptom Type Sharp,Stabbing Symptoms Relieved By Rest/Positioning Prior Functional Limitations None Current Functional Limitations Lifting Symptom Description Constant but Variable Level of pain today (0-10) 2 Pain scale - at its best (0-10) 1 Pain scale - at its worst (0-10) 9 Shoulder/Elbow Eval Shoulder Objective Measurements Elbow Objective Measurements Palpation Tenderness Elbow Palpation Overall Comment Lateral epicondyle, brachioradialis, forearm extensors Elbow Palpation Finding Tenderness tenderness elbow exam standard right tenderness forearm exam standard right Elbow ROM Right full ROM elbow exam standard right Elbow Extension Active Range of Motion ( 0 degrees) Elbow Flexion Active Range of Motion ( 145 degrees)
--- NOTE | 2022-12-07 17:46 | HMH.RHREAS ---
Rehab Reassessment Rehab OP Re-assessment Start: 12/07/22 17:04 Freq: Status: Active Protocol: Document 12/07/22 17:05 SANFORDCAROLYNE (Rec: 12/07/22 17:37 OTONIELSylwia [id number]) E-signed By Maira Garrido PT Rehab Re-assessment Subjective Subjective Pt reports he feels 70% improved since starting PT. Pt reports he had an injection last which caused increased pain for 2-3 days then started to improve. Pt reports pain at worst as 4/10 prior to the injection. Pt reports he has recently been wearing a counter balance brace which helps with physical activity at work. Objective Objective Notes TTP: mild TTP of R lateral epicondyle and brachioradialis Special tests: mild pain with passive elbow extension, no pain with Cozen's R Software Developer strength: elbow flexed 118 lbs, elbow extended 108 lb L Software Developer strength: elbow flexed 120 lbs, elbow extended 115 lb Assessment Progress Assessment Progressing as Expected Assessment Notes Pt has attended 8 PT visits consisting of UE strengthening /endurance exercises, eccentric extension strengthening, stretching, dry needling, manual therapy and modalities with good tolerance . 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 Pt would continue to benefit from skilled PT to further assist with occupational activity tolerance. Patient goals met ST/4 LT/7 Goals Not Met Software Developer strength, occupational activity tolerance, TTP Revised Goals n/a Plan Plan Continue initial POC Frequency of Therapy 1-2x/week Duration of therapy 4 more weeks Time and Billing Re-Eval Time 8 Re-Eval Billing Units 1
== END 2022-12-16 09:05 | disposition home or self-care (01) ==
LOC: PT 09:00
PROVIDERS: PCP Student in an Organized Health Care Education/Training Program; Visit Provider Student in an Organized Health Care Education/Training Program
DX: M25.521 Pain in right elbow (principal)
CPT/HCPCS: 20560; 20561; 97010; 97014; 97035; 97110; 97140; 97163; 97164; 97530; 97535; G0283

== ENCOUNTER 2022-12-24 09:53 | Day surgery (SDC) | payer BC, SELFPAY ==
[2022-12-22 10:58] VITALS: BMI 27.3
[2022-12-24 10:20] VITALS: BP 114/78; PULSE 89; RESP 18; TEMP 36.8; O2SAT 94
[2022-12-24 10:56] VITALS: O2SAT 94
--- NOTE | 2022-12-24 11:30 | P.PCN_ITS ---
Procedure: Date: 12/24/22 Patient Date of :: 1980 Procedure Performed:: Total colonoscopy to terminal ileum Indications:: Patient is a 42-year-old male. He had apparently undergone EGD and colonoscopy by Dr. Cueto on 11/13/2009 and had a submucosal lesion in the rectum removed with snare which returned as carcinoid. He has undergone colonoscopy on 08/12/[address] Gutiérrez which was normal. Dr. Mcclure had performed EGD and colonoscopy on 10/28/2016. Recently he had been taking some pain medication for orthopedic injury and noticed some rare rectal bleeding. He was scheduled for colonoscopy. Performing Provider:: Cleveland Fernández MD Referring Provider:: Sarai Santoyo Sedation:: MAC sedation Procedure:: Patient history was obtained and appropriate physical examination was performed. Patient's medications and allergies were reviewed. Informed consent was obtained after explaining the benefits, alternatives, and risks of the procedure including, but not limited to, bleeding, perforation, missed lesions, and adverse reaction to anesthesia medications. Patient was transported to endoscopy procedure room. Patient was connected to monitoring devices. Throughout the procedure the patient's blood pressure, pulse, and oxygen saturations were monitored continuously. Patient identification and planned procedure were verified by the staff. Patient was positioned in lateral decubitus position. Digital anorectal exam was performed. Variable stiffness Olympus colonoscope was inserted and advanced under direct visualization to the cecum. Adequacy of the colonic preparation was noted. The colonoscope was advanced a short distance into the terminal ileum. The colonoscope was then slowly withdrawn while carefully examining the color, texture, anatomy, and integrity of the mucosoa circumf erentially. Within the rectum retroflexion was performed. Colonoscope was then withdrawn. Findings:: Colonic preparation was good. Visualization was good. There was some rare diverticuli. He had minimal nonbleeding internal hemorrhoids. Otherwise unremarkable Impression: Rare left-sided diverticulosis Recommendations:: Occasional rectal bleeding likely due to hemorrhoids. Likely repeat colonoscopy given history within 5 years Complications:: None immediately apparent Estimated blood obtained (mL): 0
[2022-12-24 11:32] VITALS: BP 96/66; PULSE 71; RESP 16; TEMP 36.3; O2SAT 93
[2022-12-24 11:42] VITALS: BP 106/66; PULSE 62; RESP 17; O2SAT 94
--- NOTE | 2022-12-24 11:46 | EXP.ANES.CKL ---
[facility] Disclaimer: The information contained in this section may have been updated after the patient was seen, as this information can be updated by other users. Medical History Dysfunction of left eustachian tube GERD (gastroesophageal reflux disease) Hypertrophy of tonsils Hypothyroidism (acquired) Surgical History (Updated 12/24/22 @ 10:17 by Joana Cheema RN) History of gastric surgery History of surgery Hx of left knee surgery Family History (Updated 12/22/22 @ 10:57 by Amanda Zimmerman RN) Other No significant family history Social History (Updated 12/24/22 @ 10:17 by Joana Cheema RN) Smoking Status: Former smoker years smoked: 20 how long ago did patient quit smokin second hand exposure: Yes alcohol intake: current substance use type: denies use current occupational status: employed Travel in the last 8 weeks: None household members: family housing: house marital status: single education level: college caffeine: Yes do you feel safe at home: Yes victim of physical abuse: No victim of emotional abuse: No victim of sexual abuse: No would you like helpful sources: No [facility] Anesthesia Checklist Patient Identification Patient Identification: Arm Band and Verbal (Name & ) Structural Data Planned Operative Procedure/s: Colonoscopy Consent for Planned Operative Procedure(s) Verified: Yes Verified Documents: Surgical Consent NPO Status Verified Time NPO: 00:00 Airway Assessment C-Spine Mobility Assessed: Yes TMJ Mobility Assessed: Yes Dentition: Good Dentition Neurological Assessment Level of Consciousness: Awake, Alert and Appropriate Anesthesia Plan Anesthesia Risk discussed: Yes ASA Class: III Anesthesia Type: MAC
[2022-12-24 11:52] VITALS: BP 107/68; PULSE 71; RESP 17; O2SAT 96
[2022-12-24 12:02] VITALS: BP 113/83; PULSE 65; RESP 17; O2SAT 97
== END 2022-12-24 12:15 | disposition home or self-care (01) ==
PROVIDERS: PCP Student in an Organized Health Care Education/Training Program; Visit Provider Surgery
PROC: 0DJD8ZZ Inspection of Lower Intestinal Tract, Via Natural or Artificial Opening Endoscopic (ICD-10-PCS; CPT 45378; principal; 2022-12-24 11:00)
DX: Z12.11 Encounter for screening for malignant neoplasm of colon (principal); K64.8 Other hemorrhoids; K57.30 Diverticulosis of large intestine without perforation or abscess without bleeding; Z79.899 Other long term (current) drug therapy
CPT/HCPCS: 45378

== ENCOUNTER 2024-01-17 09:31 | Outpatient (CLI) | payer BC, SELFPAY ==
[2024-01-17 18:42] LABS: Basophils # 0.1 K/mm3 (0-0.2); Basophils % 1.4 % (0.1-2.0); Eosinophils # 0.2 K/mm3 (0.0-0.4); Eosinophils % 2.4 % (0.1-12.0); Hematocrit 45.4 % (42.0-52.0); Hemoglobin 15.1 g/dL (14.1-18.0); Lymphocytes # 1.8 K/mm3 (0.7-4.5); Lymphocytes % 28.9 % (10-50); Mean Corpuscular HGB Conc 33.1 g/dL (31.8-35.4); Mean Corpuscular Hemoglobin 30.8 pg (27.0-31.2); Mean Platelet Volume 9.1 fl (7.4-10.4); Monocytes # 0.4 K/mm3 (0.1-1.0); Monocytes % 5.9 % (1.7-9.3); Neutrophils # 3.9 K/mm3 (1.8-7.8); Neutrophils % 61.4 % (37.0-80.0); Platelet Count 237 K/mm3 (142-424); Red Blood Count 4.89 M/mm3 (4.60-6.20); Red Cell Distribution Width 12.9 % (11.5-17.5); White Blood Count 6.4 K/mm3 (4.8-10.8)
[2024-01-17 18:48] LABS: Alanine Aminotransferase 35 U/L (12-78); Albumin Level 4.7 g/dl (3.5-5.0); Albumin/Globulin Ratio 1.6 (1.1-1.8); Alkaline Phosphatase 94 U/L (38-126); Anion Gap 14.3 mEq/L (5-15); Aspartate Amino Transferase 41 U/L (17-59); Bilirubin,Total 0.8 mg/dl (0.2-1.3); Blood Urea Nitrogen 21 mg/dl (9-20); Calcium 10.3 mg/dl (8.4-10.2); Carbon Dioxide 24 mmol/L (22.0-30.0); Chloride 106 mmol/L (98-107); Cholesterol 273 mg/dl (140-200); Estimated Glomerular Filt Rate 106 ml/min (>60); GFR (African American) 128 ML/MIN (>60); Glucose 102 mg/dl (74-100); HDL Cholesterol 39 mg/dl (40-60); Potassium 4.3 mmoL/L (3.5-5.1); Sodium 140 mmol/L (136-145); Total Protein,Serum 7.7 g/dl (6.3-8.2); Triglycerides 190 mg/dl (30-150); VLDL Cholesterol 38 mg/dL (0-40)
[2024-01-17 18:59] LABS: Direct LDL Cholesterol 136.39 mg/dL (100-129)
[2024-01-17 19:05] LABS: 25-OH Vitamin D, Total 22.3 ng/mL (30-100)
[2024-01-17 19:25] LABS: Hemoglobin A1C 5.4 % (4.0-6.0)
== END 2024-01-17 23:59 | disposition home or self-care (01) ==
LOC: LAB.DROPOF 01-18 09:31
PROVIDERS: PCP Student in an Organized Health Care Education/Training Program; Visit Provider Student in an Organized Health Care Education/Training Program
DX: E03.9 Hypothyroidism, unspecified (principal); E55.9 Vitamin D deficiency, unspecified; Z68.27 Body mass index [BMI] 27.0-27.9, adult; Z13.1 Encounter for screening for diabetes mellitus; Z13.21 Encounter for screening for nutritional disorder; Z13.220 Encounter for screening for lipoid disorders
CPT/HCPCS: 80053; 80061; 82306; 83036; 84439; 84443; 85025

== ENCOUNTER 2024-02-10 18:00 | Outpatient (CLI) | payer BC, SELFPAY ==
[2024-02-10 19:06] LABS: Free T4 (Free Thyroxine) 1.39 ng/dl (0.78-2.19)
[2024-02-10 20:37] LABS: Thyroid Stimulating Hormone 1.08 uIU/mL (0.465-4.68)
== END 2024-02-10 23:59 | disposition home or self-care (01) ==
LOC: LAB.DROPOF 02-11 09:14
PROVIDERS: PCP Student in an Organized Health Care Education/Training Program; Visit Provider Student in an Organized Health Care Education/Training Program
DX: E03.9 Hypothyroidism, unspecified (principal)
CPT/HCPCS: 84439; 84443